=== PATIENT | female | born 1935 | race American Indian/Alaskan Native ===

== ENCOUNTER 2019-10-30 10:55 | Emergency (ER) | payer MEDICARE ==
[2019-10-30] MEDS ORDERED: ONDANSETRON 4 MG/2 ML INJ IV ONE (11:40)
[2019-10-30] MEDS ORDERED: MORPHINE 4 MG/1 ML INJ IV ONE (11:40)
--- NOTE | 2019-10-30 11:54 | Emergency Department Report ---
ED Extremity Problem HPI - General Chief complaint: Extremity Injury, Lower Stated complaint: FALL Time Seen by Provider: 10/30/19 11:30 Source: patient, EMS, old records reviewed (no previous record for review) Mode of arrival: Stretcher Limitations: Physical Limitation - History of Present Illness Initial comments: 84-year-old female the past medical history of end-stage renal disease, hypertension, CVA, hyperlipidemia, GERD, hyperparathyroidism, and gout presents to the hospital complaining of bilateral knee pain since fall out of chair yesterday. Pt has been wheelchair bound x at least 1 year and does not ambulate. PT thinks she fell asleep in the chair and landed on her knees and has bilateral knee pain. She denies head injury or LOC. Patient complains of moderate bilateral knee pain left greater than right with worsening pain with movement. She resides at [facility] and had a bilateral hip and pelvis x-ray and bilateral knee x-ray. Hip and pelvis x-rays were unremarkable. Patient's knee x-ray was positive for supracondylar fracture of the femur however, It is unclear based on report whether the left or right knee or both are fractured. Patient states that she was told her left knee was fractured. Patient fell yesterday and x-ray report was finalized yesterday at 3:29 PM however, patient was now sent to the ER until today. She is also due for dialysis today and did not receive dialysis prior to being transferred to the ER. - Related Data Allergies Allergy/AdvReac Type Severity Reaction Status Date / Time No Known Allergies Allergy Unverified 10/30/19 11:01 ED Review of Systems ROS: Stated complaint: FALL Other details as noted in HPI Comment: All other systems reviewed and negative ED Past Medical Hx - Past Medical History Previous Medical History?: Yes Hx Hypertension: Yes Hx GERD: Yes Hx Renal Disease: Yes (dialysis m-w-f) Additional medical history: Anemia, CVD, Hyperlipidema, hyperparathyroidism, Gl aucoma, Gout - Surgical History Additional Surgical History: Right av graft - Social History Smoking Status: Never Smoker Substance Use Type: None ED Physical Exam - General Limitations: Physical Limitation - Other Other exam information: General: No acute distress Head: Atraumatic Eyes: normal appearance ENT: Moist mucous membranes Neck: Normal appearance, no midline tenderness Chest: Clear to auscultation bilaterally CV: irregular rhythm +high pitch murmur Abdomen: Soft, normal bowel sounds, nontender, nondistended, no rebound or guarding Back: Normal inspection Extremity: bilateral knee swelling with limited range of motion secondary to pain on the left. Bilateral 2+ DP pulse without ankle or foot pain Neuro: Alert O x 3, no facial asymmetry, speech clear, no gross motor sensory deficit Psych: Appropriate behavior Skin: No rash ED Course Vital Signs 10/30/19 10/30/19 10/30/19 11:01 12:08 12:16 Temperature 97.9 F Pulse Rate 105 H 101 H 114 H Respiratory 20 19 23 Rate Blood Pressure 173/97 127/67 O2 Sat by Pulse 98 93 Oximetry 10/30/19 10/30/19 10/30/19 12:30 12:45 13:00 Temperature Pulse Rate 97 H 105 H 93 H Respiratory 19 18 15 Rate Blood Pressure 139/67 131/66 137/68 O2 Sat by Pulse 95 96 96 Oximetry 10/30/19 10/30/19 10/30/19 13:15 13:30 13:45 Temperature Pulse Rate 100 H 98 H 103 H Respiratory 18 17 16 Rate Blood Pressure 135/67 136/70 131/74 O2 Sat by Pulse 94 96 96 Oximetry 10/30/19 14:00 Temperature Pulse Rate 97 H Respiratory 21 Rate Blood Pressure 131/74 O2 Sat by Pulse 95 Oximetry - Reevaluation(s) Reevaluation #1: 10/30/19 14:21 Patient has mild hyperkalemia and is due for dialysis today. Albuterol 5 mg, calcium gluconate, insulin, glucose, and sodium bicarb ordered patient pending transfer to [facility] for further evaluation.. - Consultations Consultation #1: 10/30/19 13:40 call placed to [facility] service, awaiting call back 10/30/19 14:15 Patient has been accepted for transfer to [facility] ER to be accepted by Dr. Card trauma attending ED Medical Decision Making - Lab Data Result diagrams: 10/30/19 12:31 10/30/19 12:31 Lab Results 10/30/19 10/30/19 Range/Units 12:31 12:31 WBC 6.1 (4.5-11.0) K/mm3 RBC 3.69 (3.65-5.03) M/mm3 Hgb 11.2 (10.1-14.3) gm/dl Hct 33.9 (30.3-42.9) % MCV 92 (79-97) fl MCH 30 (28-32) pg MCHC 33 (30-34) % RDW 17.3 H (13.2-15.2) % Plt Count 149 (140-440) K/mm3 Lymph % (Auto) 26.0 (13.4-35.0) % [place] % (Auto) 11.3 H (0.0-7.3) % Eos % (Auto) 0.0 (0.0-4.3) % Baso % (Auto) 0.4 (0.0-1.8) % Lymph # 1.6 (1.2-5.4) K/mm3 [place] # 0.7 (0.0-0.8) K/mm3 Eos # 0.0 (0.0-0.4) K/mm3 Baso # 0.0 (0.0-0.1) K/mm3 Seg Neutrophils % 62.3 (40.0-70.0) % Seg Neutrophils # 3.8 (1.8-7.7) K/mm3 Sodium 132 L (137-145) mmol/L Potassium 5.3 H (3.6-5.0) mmol/L Chloride 93.5 L (98-107) mmol/L Carbon Dioxide 19 L (22-30) mmol/L Anion Gap 25 mmol/L BUN 48 H (7-17) mg/dL Creatinine 3.1 H (0.7-1.2) mg/dL Estimated GFR 14 ml/min BUN/Creatinine Ratio 15 % Glucose 113 H (65-100) mg/dL Calcium 9.2 (8.4-10.2) mg/dL - EKG Data -: EKG Interpreted by Me (atrial fibrillation) EKG shows normal: ST-T waves (lat t inv) - Radiology Data Radiology results: report reviewed INDICATION / CLINICAL INFORMATION: fall and knee injury yesterday. COMPARISON: None available. FINDINGS: There are bilateral comminuted and angulated fractures of the distal femoral shafts width lateral displacement and posterior displacement of the distal fracture fragments. - Medical Decision Making Patient presents to the hospital with bilateral distal femur fractures that occurred yesterday. Patient has 2+ distal DP pulses. She received morphine 4 mg for pain with Zofran 4 mg. Patient also is a dialysis patient and receives dialysis Monday, Monday, Monday and did not receive dialysis prior to ED transfer. She does have mild hyperkalemia and acidosis. Patient is treated with albuterol, calcium gluconate, insulin, and glucose. Patient does not complain of shortness of breath and is lying fairly flat in bed without signs or symptoms of volume overload. Patient does have an irregular heartbeat and EKG shows A. fib which is rate controlled. As per senior living paperwork patient does not have a history of A. fib and is on Plavix but not any other an ticoagulant medication. Pt was not placed on anticoagulation meds prior to transfer due to need for possible orthopedic surgery. Case discussed with [facility] transfer service and patient accepted by [facility] trauma attending for transfer to the ER for further work-up and evaluation. - Differential Diagnosis Fracture, contusion, sprain Critical Care Time: No Critical care attestation.: If time is entered above; I have spent that time in minutes in the direct care of this critically ill patient, excluding procedure time. ED Disposition Clinical Impression: Wheelchair bound, ESRD needing dialysis, New onset atrial fibrillation, Hyperkalemia, Bilateral femoral fractures Disposition: DC/TX-70 ANOTHER TYPE [facility] Is pt being admited?: No Condition: Stable Time of Disposition: 14:29 (Dr Card/[facility])
[2019-10-30 12:47] LABS: Basophils % (Auto) 0.4 % (0.0-1.8); Hematocrit 33.9 % (30.3-42.9); Hemoglobin 11.2 gm/dl (10.1-14.3); Lymphocytes # (Auto) 1.6 K/mm3 (1.2-5.4); Mean Corpuscular HGB Conc 33 % (30-34); Mean Corpuscular Volume 92 fl (79-97); Monocytes # (Auto) 0.7 K/mm3 (0.0-0.8); Monocytes % (Auto) 11.3 % (0.0-7.3); Platelet Count 149 K/mm3 (140-440); Red Blood Count 3.69 M/mm3 (3.65-5.03); Red Cell Distribution Width 17.3 % (13.2-15.2)
--- NOTE | 2019-10-30 12:53 | XRay Report ---
XR knee BILAT 1-2V INDICATION / CLINICAL INFORMATION: fall and knee injury yesterday. COMPARISON: None available. FINDINGS: There are bilateral comminuted and angulated fractures of the distal femoral shafts width lateral dis placement and posterior displacement of the distal fracture fragments. Signer Name: Abdulaziz Crocker MD Signed: 10/30/2019 12:49 PM Workstation Name: [id number]
[2019-10-30 13:11] LABS: Calcium 9.2 mg/dL (8.4-10.2)
[2019-10-30] MEDS ORDERED: SODIUM BICARB 8.4% 50 MEQ/50 ML SYRINGE IV ONE (14:15)
[2019-10-30] MEDS ORDERED: ALBUTEROL 2.5 MG/3 ML NEBU IH ONE ×2 (14:17)
[2019-10-30] MEDS ORDERED: DEXTROSE 50% IN WATER (25GM) 50 ML VIAL IV ONE (14:19)
[2019-10-30] MEDS ORDERED: INSULIN REGULAR, HUMAN 100 UNITS/1 ML IV ONE (14:21)
[2019-10-30] MEDS ORDERED: DEXTROSE 50% IN WATER (25GM) 50 ML SYRINGE IV ONE (15:00)
[2019-10-30] MEDS ORDERED: CALCIUM GLUCONATE 1,000 MG in SODIUM CHLORIDE 0.9% 100 ML IV ONE (15:17)
[2019-10-30 17:21] VITALS: BP 127/78
== END 2019-10-30 16:35 | disposition other institution (70) ==
LOC: ED 10:55
DX: S72.352A Displaced comminuted fracture of shaft of left femur, initial encounter for closed fracture (principal); S72.351A Displaced comminuted fracture of shaft of right femur, initial encounter for closed fracture; I48.91 Unspecified atrial fibrillation; E87.5 Hyperkalemia; I12.0 Hypertensive chronic kidney disease with stage 5 chronic kidney disease or end stage renal disease; N18.6 End stage renal disease; Z99.2 Dependence on renal dialysis; X58.XXXA Exposure to other specified factors, initial encounter; Y93.89 Activity, other specified; Y92.89 Other specified places as the place of occurrence of the external cause; Y99.8 Other external cause status
CPT/HCPCS: 36415; 73560; 80048; 85025; 93005; 93010; 94640; 96374; 96375; 99285; J0610; J2270; J2405; 94644; J1815

== ENCOUNTER 2019-12-11 05:10 | Emergency (ER) | payer MEDICARE ==
--- NOTE | 2019-12-11 05:28 | Emergency Department Report ---
ED CPR HPI - General Stated Complaint: CARDIAC ARREST Time Seen by Provider: 12/11/19 05:13 Source: EMS Mode of arrival: Stretcher Limitations: Altered Mental Status, Physical Limitation - History of Present Illness Initial Comments: Patient is an 84-year-old female that presents from a local halfway and a cardiac arrest. Patient's been down for approximately an hour. Patient was brought in by EMS. Patient is being bagged with a BVM and has a right tibial IO. Patient having good chest rise with ventilation. Patient has received epinephrine. No signs of life per EMS. Report received from EMS. EMS states the patient was recently diagnosed with pneumonia. MD Complaint: found unresponsive -: hour(s) Place: [facility] Bystander CPR Performed: No AED Applied by Bystander/Inseminator: No Shock Advised: No Initial Findings in the Field: unresponsive, no respirations, no pulse ROSC in the Field: No Associated Injuries: No Treatments Prior to Arrival: BMV, chest compressions, epinephrine mgs #, other - Related Data Previous Rx's Medication Instructions Recorded Last Taken Type Acetaminophen [Acetaminophen TAB] 650 mg PO Q4H PRN tablet 12/03/19 Unknown Rx Sodium Hypochlorite [Dakin's Half 1 applic TP BID bottle 12/03/19 Unknown Rx Strength] Allergies Allergy/AdvReac Type Severity Reaction Status Date / Time No Known Allergies Allergy Unverified 10/30/19 11:01 ED Review of Systems ROS: Stated complaint: CARDIAC ARREST Other details as noted in HPI Comment: Unobtainable due to pts medical conditions ED Past Medical Hx - Past Medical History Previous Medical History?: Yes Hx Hypertension: Yes Hx Diabetes: Yes Hx GERD: Yes Hx Renal Disease: Yes (dialysis m-w-f) Additional medical history: Anemia, CVD, Hyperlipidema, hyperparathyroidism, Glaucoma, Gout - Surgical History Past Surgical History?: Yes Additional Surgical History: Right av graft - Family History Family history: no significant - Social History Smoking Status: Never Smoker Substance Use Type: None - Medications Home Medications: Home Medications Medication Instructions Recorded Confirmed Last Taken Type Acetaminophen [Acetaminophen TAB] 650 mg PO Q4H PRN tablet 12/03/19 Unknown Rx Sodium Hypochlorite [Dakin's Half 1 applic TP BID bottle 12/03/19 Unknown Rx Strength] ED Physical Exam - General Limitations: Altered Mental Status, Physical Limitation General appearance: other - Head Head exam: Present: atraumatic, normocephalic - Eye Eye exam: Present: other (Pupils fixed and dilated) - ENT ENT exam: Present: other (Oral airway in place) - Neck Neck exam: Present: normal inspection - Respiratory Respiratory exam: Present: decreased breath sounds - Cardiovascular Cardiovascular Exam: Present: other (No cardiac activity or pulse noted) - GI/Abdominal GI/Abdominal exam: Present: soft - Extremities Exam Extremities exam: Present: other (Muscular stiffness noted. Right IO noted) - Skin Skin exam: Present: warm, dry, other (Right IO noted). Absent: normal color ED Course - Reevaluation(s) Reevaluation #1: Report received from EMS via EMS radio. Report states that the patient is an 84-year-old female in a cardiac arrest from a local halfway. 12/11/19 05:00 Reevaluation #2: Patient arrived via EMS. Initial evaluation done. Report received from EMS. Patient has muscular stiffness. Patient has no signs of life. Patient's having good chest rise with bagging. No cardiac motion noted with ultrasound. No pulse noted. No signs of life. Resuscitation efforts have been discontinued 12/11/19 05:12 ED Medical Decision Making - Medical Decision Making Patient is an 84-year-old female that presents from a local halfway in cardiac arrest. Patient had no signs of life and muscular rigidity noted on initial exam. Resuscitations efforts were terminated due to no signs of life, no cardiac motion and fixed pupils. Ultrasound was used and no cardiac motion. Report received from EMS. - Differential Diagnosis Cardiac arrest. Sepsis, respiratory failure. Critical Care Time: Yes Critical care time in (mins) excluding proc time.: 35 Critical care attestation.: If time is entered above; I have spent that time in minutes in the direct care of this critically ill patient, excluding procedure time. Critical Care Time: 35 MINUTES ED Disposition Clinical Impression: Cardiac arrest Disposition: DC-20 Is pt being admited?: No Does the pt Need Aspirin: No Condition: Stable Time of Disposition: 05:38
== END 2019-12-11 06:20 ==
LOC: ED 05:13
DX: I46.9 Cardiac arrest, cause unspecified (principal); K21.9 Gastro-esophageal reflux disease without esophagitis; E11.22 Type 2 diabetes mellitus with diabetic chronic kidney disease; I12.0 Hypertensive chronic kidney disease with stage 5 chronic kidney disease or end stage renal disease; N18.6 End stage renal disease; Z99.2 Dependence on renal dialysis; E78.5 Hyperlipidemia, unspecified; E21.3 Hyperparathyroidism, unspecified
CPT/HCPCS: 92950